=== PATIENT | male | born 1960 | race Caucasian/White ===

== ENCOUNTER 2017-05-12 10:32 | Emergency (ER) | payer BC ==
[2017-05-12 11:24] LABS: ABS Basophils 0.1 10^3/ul (0-0.2); ABS Eosinophils 0.1 10^3/ul (0-0.6); ABS Lymphocytes 1.4 10^3/ul (1.0-4.8); ABS Monocytes 0.4 10^3/ul (0-0.8); ABS Neutrophils 4.6 10^3/ul (1.5-7.7); ABS Nucleated RBC 0 10^3/ul; Eosinophil % 1.6 % (0-6); Hematocrit 45 % (42-52); Hemoglobin 15.4 g/dl (14.0-18.0); Mean Corpuscular HGB Conc 34 g/dl (31-36); Mean Corpuscular Hemoglobin 31 pg (27-31); Mean Corpuscular Volume 91 fL (80-94); Mean Platelet Volume 8 um3 (7.4-10.4); Nucleated Red Blood Cells % 0.1; Platelet Count 228 10^3/ul (150-450); Red Blood Count 4.97 10^6/ul (4.0-5.4); Red Cell Distribution Width 14 % (10.5-15); White Blood Count 6.5 10^3/ul (3.5-10.8)
--- NOTE | 2017-05-12 11:26 | RAD ---
INDICATION: Chest pain COMPARISON: Most recent comparison chest x-ray August 28, 2008 TECHNIQUE: Single AP portable view of the chest was obtained. FINDINGS: Image quality is compromised due to the relative inferiority of a portable chest x-ray. The heart and mediastinum exhibit normal size and contour. The lungs are grossly clear. There is no evidence of a large pleural effusion. Visualized bones are normal for the patient's age. IMPRESSION: No radiographic evidence for acute cardiopulmonary abnormality on this portable chest x-ray.
[2017-05-12 11:41] LABS: EGFR Non-African American 62.2 (>60)
[2017-05-12] MEDS ORDERED: fentaNYL* 50 MCG/ML 2 ML VIAL (100 MCG VIAL) ONE (12:03)
[2017-05-12] MEDS ORDERED: Heparin 2 UNITS/ML IVPREMIX* 3,000 ML IV ONE (12:04)
[2017-05-12] MEDS ORDERED: Lidocaine 1% INJ* 10 MG/ML 30 ML SDV ONE (12:04)
[2017-05-12 12:05] VITALS: BP 114/76
[2017-05-12] MEDS ORDERED: VERAPAMIL 2.5 MG/ML 4 ML VIAL ONE (12:05)
[2017-05-12] MEDS ORDERED: Heparin(*) 1000 UNIT/ML 10 ML VIAL CATH LAB IV ONE (12:05)
[2017-05-12] MEDS ORDERED: nitroGLYCERIN DRIP* 25,000 MCG/250 ML BTL ONE ×2 (12:05→14:14)
[2017-05-12] MEDS ORDERED: Midazolam* 1 MG/ML 10 ML VIAL (10 MG) ONE (12:06)
[2017-05-12] MEDS ORDERED: Iohexol 350 (CONTRAST) 200 ML MDV IV ONE (12:06)
[2017-05-12] MEDS ORDERED: Acetaminophen TAB* 325 MG PO PRN (14:29)
[2017-05-12] MEDS ORDERED: oxyCODONE/Acetamin 5/325 MG* TAB PO PRN (14:29)
[2017-05-12] MEDS ORDERED: Atorvastatin* 80 MG TAB PO ONE (14:30)
--- NOTE | 2017-05-15 00:25 | CATH ---
CC: Dr. Martínez Campuzano; Dr. Kaiser Moody CARDIAC CATHETERIZATION REPORT: DATE OF CATHETERIZATION: 05/12/17 REASON FOR CARDIAC CATHETERIZATION: The patient with markedly abnormal stress echo with EKG changes and wall motion abnormalities raising the question of multivessel disease. PROCEDURE: Coronary arteriography, left heart catheterization, left ventriculography. DESCRIPTION OF PROCEDURE: The patient was interviewed and examined in the holding area of the laborer cutting tool where the risks and benefits were explained. He understood them and wished to proceed. The right radial artery site was assessed in the holding area for approachability for cardiac catheterization and it was found to be acceptable for this and as such, the patient was brought to the cardiovascular laboratory and prepped and draped in sterile fashion. The right radial artery area was anesthetized with 1% lidocaine, the right radial artery was cannulated and a 6- [place] Glidesheath was placed. He received the radial artery cocktail including 3000 units of heparin, 3 mg of verapamil and 300 mcg of nitroglycerin. Coronary arteriography was then performed utilizing a 5-[place] TIG 4 curved diagnostic catheter. Central aortic pressure was recorded using a PIG Performa radial 5-[place] catheter advanced to the ascending aorta. The catheter was then passed across the aortic valve into the left ventricle, where left ventricular pressure was recorded. Left ventriculography was performed utilizing a total of 28 cc of Omnipaque dye at a rate of 14 cc/sec. The catheter was then pulled back across the aortic valve to recheck gradient. Following this and after a discussion with Dr. Moody, a decision was made to remove the sheath and hemostasis was controlled with a radial artery band. The patient was then prepared for transfer to [facility] in light of critical multivessel disease. The total contrast used was 95 cc of Omnipaque dye. The radiation exposure included 9.4 minutes of fluoro time. The air kerma radiation was 880 milligray. The DAPA radiation was 5034 microgray per meter squared. RESULTS: HEMODYNAMIC DATA: LEFT HEART CATHETERIZATION: Central aortic pressure was recorded at 104/58 with a mean of 79, left ventricular pressure of 107 over left ventricular end diastolic pressure of 13. LEFT VENTRICULOGRAPHY: Performed in the SUTTON projection revealed hyperdynamic left ventricular systolic function with an ejection fraction in excess of 65%. CORONARY ARTERIOGRAPHY: A. Left coronary artery: 1. Left main - of note, the left main was heavily calcified with a long segment of lumen reduction in its tha-tz-[id number] area. In its worst view, it appeared to have a narrowing of 60% to 65%. 2. Left anterior descending artery - the left anterior descending artery had a proximal lesion of 75% to 80% in its worst view. Following this, the mid segment in the LAD had mild disease. The wih-tm-ldjhiv segment had sequential lesions in the LAD of 85% to 90%. The first diagonal branch was a large bifurcating artery that appeared to have moderate disease in the more medial branch over the bifurcation of approximately 30% to 40%. The caliber of the vessel after the bifurcation appear to be less than 1.7 mm. 3. Circumflex artery - a non-dominant vessel supplying a thin first and second and third obtuse marginal branch followed by a moderate size bifurcating fourth obtuse marginal branch. There was mild luminal irregularity seen in the proximal segment of this artery of 20% to 25%. B. Right coronary artery - a dominant vessel supplying the PDA and multiple posterior left ventricular branches. The proximal area had diffuse narrowing of up to 60% to 65%. The mid segment had a critical 90% to 95% blockage seen prior to the artery turning on to the inferior surface. At the posterior descending artery, the right coronary artery tapered just prior to that and involved the take off of the posterior descending artery with significant luminal reduction of approximately 80%. The posterior LV branches appeared to be small in caliber. The PDA itself had a mild lesion of approximately 60% to 65%. 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 Hyperdynamic left ventricular systolic function was noted. In light of these findings, a discussion was made with Dr. Jaden Staton at [facility], who graciously accepted the patient for transfer for bypass surgery. Further management will be made by the cardiovascular service at [facility]. [id number]/[facility] #: [id number] [place]
--- NOTE | 2017-05-28 10:28 | ED ---
Nikita Sandoval Angela scribed for Massimo Dean MD on 05/12/17 at 1057 . HPI Chest Pain - HPI Summary HPI Summary: This pt is a 56 y/o male presenting to [facility] referred from reinsurance claim analyst office for chest pain today. Pt was at his reinsurance claim analyst's office having a stress test today and developed chest pain. Pt states that during the summer he used to be able to mow the lawn without any difficulties, but this past summer he had to stop multiple times before he finished. He went to his PCP's office and was referred to a reinsurance claim analyst for a stress test. Pt was given nitroglycerin, aspiring, and antihypertensive [employer] PET. Pt denies any current chest pain. PMHx includes HTN, for which he has been taking medications 20 mg for the last year. - History of Current Complaint Chief Complaint: EDChestPainROMI Time Seen by Provider: 05/12/17 10:46 Hx Obtained From: Patient Onset/Duration: Started Hours Ago, Atraumatic Timing: Constant, Lasting Hours Current Severity: None Pain Intensity: 0 Chest Pain Location: Diffuse Chest Pain Radiates: No Alleviating Factor(s): NTG 123, Other: - aspirin - Allergy/Home Medications Allergies/Adverse Reactions: Allergies Allergy/AdvReac Type Severity Reaction Status Date / Time Amoxicillin Allergy Rash Verified 05/12/17 11:04 Penicillins Allergy Rash Verified 05/12/17 11:04 Home Medications: Home Medications Lisinopril TAB* [Prinivil TAB*] 20 mg PO DAILY 05/12/17 [History Confirmed 05/12] Multivitamins/Minerals TAB* [Theragran/minerals TAB*] 1 tab PO DAILY 05/12/17 [ History Confirmed 05/12/17] PMH/Surg Hx/FS Hx/Imm Hx Endocrine/Hematology History: Denies: Hx Diabetes Cardiovascular History: Reports: Hx Hypertension Infectious Disease History: No Infectious Disease History: Denies: Traveled Outside the [place] in Last 30 Days - Family History Known Family History: Positive: None - Social History Alcohol Use: Occasionally Substance Use Type: Reports: None Smoking Status (MU): Never Smoked Tobacco Review of Systems Negative: Fever, Chills Negative: Erythema Negative: Sore Throat Positive: Chest Pain Negative: Shortness Of Breath, Cough Negative: Abdominal Pain, Vomiting, Nausea Negative: dysuria, hematuria Negative: Myalgia, Edema Negative: Rash Neurological: Other - NEG: dizziness All Other Systems Reviewed And Are Negative: Yes Physical Exam - Summary Physical Exam Summary: Constitutional: Well-developed, Well-nourished, Alert. (-) Distressed Skin: Warm, Dry HENT: Normocephalic; Atraumatic Eyes: Conjunctiva normal Neck: Musculoskeletal ROM normal neck. (-) JVD, (-) Stridor, (-) Tracheal deviation Cardio: Rhythm regular, rate normal, Heart sounds normal; Intact distal pulses; The pedal pulses are 2+ and symmetric. Radial pulses are 2+ and symmetric. (-) Murmur Pulmonary/Chest wall: Effort normal. (-) Respiratory distress, (-) Wheezes, (-) Rales Abd: Soft, (-) Tenderness, (-) Distension, (-) Guarding, (-) Rebound Musculoskeletal: (-) Edema Lymph: (-) Cervical adenopathy Neuro: Alert, Oriented x3 Psych: Mood and affect Normal Triage Information Reviewed: Yes Vital Signs On Initial Exam: Initial Vitals Temp Pulse Resp BP Pulse Ox 97.4 F 63 15 131/81 96 05/12/17 10:35 05/12/17 10:35 05/12/17 10:35 05/12/17 10:35 05/12/17 10:35 Vital Signs Reviewed: Yes Diagnostics - Vital Signs Vital Signs Temp Pulse Resp BP Pulse Ox 05/12/17 10:35 97.4 F 63 15 131/81 96 - Laboratory Lab Results: Lab Results 05/12/17 05/12/17 05/12/17 Range/Units 11:10 11:10 11:10 WBC 6.5 (3.5-10.8) 10^3/ul RBC 4.97 (4.0-5.4) 10^6/ul Hgb 15.4 (14.0-18.0) g/dl Hct 45 (42-52) % MCV 91 (80-94) fL MCH 31 (27-31) pg MCHC 34 (31-36) g/dl RDW 14 (10.5-15) % Plt Count 228 (150-450) 10^3/ul MPV 8 (7.4-10.4) um3 Neut % (Auto) 70.0 (38-83) % Lymph % (Auto) 21.0 L (25-47) % Merrick % (Auto) 6.4 (1-9) % Eos % (Auto) 1.6 (0-6) % Baso % (Auto) 1.0 (0-2) % Absolute Neuts (auto) 4.6 (1.5-7.7) 10^3/ul Absolute Lymphs (auto) 1.4 (1.0-4.8) 10^3/ul Absolute Monos (auto) 0.4 (0-0.8) 10^3/ul Absolute Eos (auto) 0.1 (0-0.6) 10^3/ul Absolute Basos (auto) 0.1 (0-0.2) 10^3/ul Absolute Nucleated RBC 0 10^3/ul Nucleated RBC % 0.1 APTT (26.0-36.3) seconds Sodium 134 (133-145) mmol/L Potassium 4.4 (3.5-5.0) mmol/L Chloride 102 (101-111) mmol/L Carbon Dioxide 27 (22-32) mmol/L Anion Gap 5 (2-11) mmol/L BUN 17 (6-24) mg/dL Creatinine 1.20 H (0.67-1.17) mg/dL Est GFR ( Amer) 80.0 (>60) Est GFR (Non-Af Amer) 62.2 (>60) BUN/Creatinine Ratio 14.2 (8-20) Glucose 101 H (70-100) mg/dL Lactic Acid 1.3 (0.5-2.0) mmol/L Calcium 9.4 (8.6-10.3) mg/dL Magnesium 2.2 (1.9-2.7) mg/dL Total Bilirubin 0.60 (0.2-1.0) mg/dL AST 20 (13-39) U/L ALT 22 (7-52) U/L Alkaline Phosphatase 33 L (34-104) U/L Troponin I 0.01 (<0.04) ng/mL Total Protein 7.3 (6.4-8.9) g/dL Albumin 4.3 (3.2-5.2) g/dL Globulin 3.0 (2-4) g/dL Albumin/Globulin Ratio 1.4 (1-3) 05/12/17 Range/Units 11:10 WBC (3.5-10.8) 10^3/ul RBC (4.0-5.4) 10^6/ul Hgb (14.0-18.0) g/dl Hct (42-52) % MCV (80-94) fL MCH (27-31) pg MCHC (31-36) g/dl RDW (10.5-15) % Plt Count (150-450) 10^3/ul MPV (7.4-10.4) um3 Neut % (Auto) (38-83) % Lymph % (Auto) (25-47) % Merrick % (Auto) (1-9) % Eos % (Auto) (0-6) % Baso % (Auto) (0-2) % Absolute Neuts (auto) (1.5-7.7) 10^3/ul Absolute Lymphs (auto) (1.0-4.8) 10^3/ul Absolute Monos (auto) (0-0.8) 10^3/ul Absolute Eos (auto) (0-0.6) 10^3/ul Absolute Basos (auto) (0-0.2) 10^3/ul Absolute Nucleated RBC 10^3/ul Nucleated RBC % APTT 29.9 (26.0-36.3) seconds Sodium (133-145) mmol/L Potassium (3.5-5.0) mmol/L Chloride (101-111) mmol/L Carbon Dioxide (22-32) mmol/L Anion Gap (2-11) mmol/L BUN (6-24) mg/dL Creatinine (0.67-1.17) mg/dL Est GFR ( Amer) (>60) Est GFR (Non-Af Amer) (>60) BUN/Creatinine Ratio (8-20) Glucose (70-100) mg/dL Lactic Acid (0.5-2.0) mmol/L Calcium (8.6-10.3) mg/dL Magnesium (1.9-2.7) mg/dL Total Bilirubin (0.2-1.0) mg/dL AST (13-39) U/L ALT (7-52) U/L Alkaline Phosphatase (34-104) U/L Troponin I (<0.04) ng/mL Total Protein (6.4-8.9) g/dL Albumin (3.2-5.2) g/dL Globulin (2-4) g/dL Albumin/Globulin Ratio (1-3) Result Diagrams: 05/12/17 11:10 05/12/17 11:10 Lab Statement: Any lab studies that have been ordered have been reviewed, and results considered in the medical decision making process. - Radiology Chest XR Xray Interpretation: No Acute Changes - IMPRESSION: No radiographic evidence for acute cardiopulmonary abnormality on this portable chest x-ray. Dr. Dean has reviewed this radiology report. Radiology Interpretation Completed By: Radiologist - EKG 10:35 Cardiac Rate: NL EKG Rhythm: Sinus Rhythm - at 60 bpm EKG Interpretation: J-point V2, V3 Chest Pain Course/Dx - Course Course Of Treatment: This pt is a 56 y/o male presenting to [facility] referred from reinsurance claim analyst office for chest pain today. Pt was at his reinsurance claim analyst's office having a stress test today and developed chest pain. Pt states that during the summer he used to be able to mow the lawn without any difficulties, but this past summer he had to stop multiple times before he finished. He went to his PCP 's office and was referred to a reinsurance claim analyst for a stress test. Pt was given nitroglycerin, aspiring, and antihypertensive [employer] PET. Pt denies any current chest pain. Chest XR shows no radiographic evidence for acute cardiopulmonary abnormality on this portable chest x-ray. EKG shows NSR with J-point in V2, V3. I discussed pt care [facility] Dr. Bernard, who will take the pt to the medical laboratory manager now. - Diagnoses Provider Diagnoses: Chest pain, unspecified - Provider Notifications Discussed Care Of Patient With: Jovi Bernard Time Discussed With Above Provider: 11:38 Instructed by Provider To: Other - I discussed pt care [facility] Dr. Bernard, who will take the pt to the medical laboratory manager now. - Critical Care Time Critical Care Time: 30-74 min - 45 minutes Discharge - Discharge Plan Condition: Stable Disposition: ADMITTED TO [facility] Referrals: Martínez Campuzano MD [Primary Care Provider] - The documentation as recorded by the Nikita thapa Angela accurately reflects the service I personally performed and the decisions made by Dianne crowder Jerry, MD.
== END 2017-05-12 12:03 | disposition short-term general hospital (02) ==
LOC: ED 10:32
DX: R07.89 Other chest pain (principal); I10 Essential (primary) hypertension; Z88.0 Allergy status to penicillin
CPT/HCPCS: 36415; 71010; 76937; 80053; 83605; 83735; 84484; 85025; 85730; 93005; 93458; 99156; 99157; 99282; A9270-GY; J1644; J2250; J3010

== ENCOUNTER 2022-03-04 10:18 | Observation (INO) ==
[2022-03-04 11:46] LABS: ABS Eosinophils 0.1 10^3/ul (0-0.6); ABS Lymphocytes 1.5 10^3/ul (1.0-4.8); ABS Monocytes 0.5 10^3/ul (0-0.8); ABS Neutrophils 5.1 10^3/ul (1.5-7.7); Eosinophil % 1.4 %; Hematocrit 51 % (42-52); Lymphocyte % 20.5 %; Mean Corpuscular HGB Conc 34 g/dL (31-36); Mean Corpuscular Hemoglobin 31 pg (27-31); Mean Corpuscular Volume 93 fL (80-94); Mean Platelet Volume 8.4 fL (7.4-10.4); Nucleated Red Blood Cells % 0.2; Platelet Count 202 10^3/uL (150-450); Red Blood Count 5.41 10^6 /uL (4.18-5.48); Red Cell Distribution Width 14 % (10-15); White Blood Count 7.2 10^3/uL (3.5-10.8)
[2022-03-04 11:53] LABS: High Sens Troponin Baseline 7366 pg/mL (<20)
[2022-03-04 12:14] LABS: Albumin 4.4 g/dL (3.2-5.2); CO2 Carbon Dioxide 29 mmol/L (22-32); Calcium 9.5 mg/dL (8.6-10.3); Chloride 103 mmol/L (101-111); Sodium 137 mmol/L (135-145)
[2022-03-04 12:20] LABS: ALT 37 U/L (7-52); Albumin/Globulin Ratio 1.5 (1-3); Alkaline Phosphatase 46 U/L (35-149); Blood Urea Nitrogen 15 mg/dL (6-24); Globulin 2.9 g/dL (2-4); Glucose 92 mg/dL (70-100); Total Protein 7.3 g/dL (6.4-8.9); eGFR CKD-EPI 66.6 (>60)
[2022-03-04 12:44] LABS: Anion Gap 5 mmol/L (2-11)
[2022-03-04 12:46] LABS: Magnesium 2.2 mg/dL (1.9-2.7)
[2022-03-04 12:51] LABS: Lipase 31 U/L (11.0-82.0)
[2022-03-04 13:07] LABS: Activated Partial Thrombo Time 33.3 seconds (26.0-38.0); INR 1.03 (0.89-1.11)
[2022-03-04] MEDS: Heparin 5000 UNITS/ML 1 mL VIAL IV SCH ×2 (13:15→19:54)
[2022-03-04] MEDS: Heparin DRIP 25,000 UNITS BAG 25,000 UNITS/500 ML BAG IV SCH (13:17)
[2022-03-04 14:20] LABS: Potassium Redraw 4.5 mmol/L (3.5-5.0)
[2022-03-05 06:57] LABS: ABS Basophils 0.1 10^3/ul (0-0.2); ABS Eosinophils 0.1 10^3/ul (0-0.6); ABS Lymphocytes 1.5 10^3/ul (1.0-4.8); ABS Monocytes 0.5 10^3/ul (0-0.8); ABS Neutrophils 3.7 10^3/ul (1.5-7.7); Eosinophil % 1.9 %; Hematocrit 43 % (42-52); Hemoglobin 14.7 g/dL (14.0-18.0); Lymphocyte % 25.6 %; Mean Corpuscular HGB Conc 34 g/dL (31-36); Mean Corpuscular Hemoglobin 31 pg (27-31); Mean Corpuscular Volume 93 fL (80-94); Mean Platelet Volume 8.2 fL (7.4-10.4); Platelet Count 174 10^3/uL (150-450); Red Blood Count 4.69 10^6 /uL (4.18-5.48); Red Cell Distribution Width 14 % (10-15); White Blood Count 5.9 10^3/uL (3.5-10.8)
[2022-03-05] MEDS: Aspirin EC 81 mg TAB.EC (enteric coated) PO SCH (12:13)
[2022-03-05 14:13] LABS: HDL Cholesterol 48.3 mg/dL
[2022-03-05 15:24] LABS: High Sensitivity Troponin 1 Hr 5360 pg/mL (<20)
[2022-03-05] MEDS: Heparin DRIP 25,000 UNITS BAG 25,000 UNITS/500 ML BAG IV SCH (20:18)
[2022-03-05] MEDS: Isosorbide Mononit ER 30mg TAB PO SCH (21:52)
[2022-03-06 03:38] LABS: ABS Eosinophils 0.1 10^3/ul (0-0.6); ABS Lymphocytes 1.7 10^3/ul (1.0-4.8); ABS Monocytes 0.5 10^3/ul (0-0.8); Eosinophil % 1.9 %; Hematocrit 42 % (42-52); Hemoglobin 14.2 g/dL (14.0-18.0); Lymphocyte % 26.7 %; Mean Corpuscular HGB Conc 34 g/dL (31-36); Mean Corpuscular Hemoglobin 31 pg (27-31); Mean Corpuscular Volume 92 fL (80-94); Mean Platelet Volume 8.1 fL (7.4-10.4); Platelet Count 175 10^3/uL (150-450); Red Blood Count 4.61 10^6 /uL (4.18-5.48); Red Cell Distribution Width 14 % (10-15); White Blood Count 6.4 10^3/uL (3.5-10.8)
[2022-03-06 03:45] LABS: Activated Partial Thrombo Time 58.8 seconds (26.0-38.0)
[2022-03-06 04:36] LABS: Albumin 3.7 g/dL (3.2-5.2); Calcium 8.8 mg/dL (8.6-10.3); Total Bilirubin 0.8 mg/dL (0.2-1.0)
[2022-03-06 04:42] LABS: Albumin/Globulin Ratio 1.5 (1-3); Globulin 2.5 g/dL (2-4); Total Protein 6.2 g/dL (6.4-8.9); eGFR CKD-EPI 74.6 (>60)
[2022-03-06 04:48] LABS: INR 1.22 (0.89-1.11)
[2022-03-06] MEDS: Isosorbide Mononit ER 30mg TAB PO SCH ×2 (08:33→11:35)
[2022-03-06] MEDS: Aspirin EC 81 mg TAB.EC (enteric coated) PO SCH ×2 (08:33→11:35)
[2022-03-06 14:12] LABS: Magnesium 1.9 mg/dL (1.9-2.7)
[2022-03-06 15:34] LABS: High Sensitivity Troponin 1 Hr 3502 pg/mL (<20)
[2022-03-06 19:20] VITALS: BP 141/95
== END 2022-03-06 22:10 | disposition short-term general hospital (02) ==
LOC: EDHOLD 10:18 → ED 10:18 → EDHOLD 03-05 23:44 → MEDTELE 03-05 23:55
PROVIDERS: ADMIT Internal Medicine; ATTEND Internal Medicine

== ENCOUNTER 2022-10-07 07:37 | Observation (INO) ==
[2022-10-07] MEDS ORDERED: fentaNYL 100 mcg/2 ml 50 MCG/ML VIAL IV SLOW PU ONE (08:15)
[2022-10-07] MEDS ORDERED: Midazolam 10 mg/10 ml VIAL 1 mg/ml 10 ml VIAL (10 mg) IV SLOW PU ONE (08:15)
[2022-10-07] MEDS ORDERED: VERAPAMIL 2.5 MG/ML 2 ML VIAL ** 5 mg/2 ml ONE (08:34)
[2022-10-07] MEDS ORDERED: Heparin 2 UNITS/ML 1000 mls 2,000 ML IV ONE (08:34)
[2022-10-07] MEDS ORDERED: Heparin 1,000 UNIT/ML 10 ml (10,000 UNITS) CATHLAB/DIALYSIS ONE (08:34)
[2022-10-07] MEDS ORDERED: Lidocaine 1% MPF 5 ML VIAL ONE (08:35)
[2022-10-07] MEDS ORDERED: nitroGLYCERIN DRIP 25,000 MCG/250 ML BTL ONE (08:35)
[2022-10-07] MEDS ORDERED: Iohexol 350 (CONTRAST) 200 ML MDV IV ONE (08:35)
[2022-10-07] MEDS ORDERED: Bivalirudin 250 MG VIAL ONE (09:44)
[2022-10-07] MEDS ORDERED: NS 0.9% 1000 ml BAG 1,000 ML IV SCH (10:30)
[2022-10-07] MEDS: NS 0.9% 1000 ml BAG 1,000 ML IV ONE ×2 (11:11→18:14)
[2022-10-07 13:09] LABS: ABS Eosinophils 0.1 10^3/uL (0.0-0.5); ABS Monocytes 0.2 10^3/uL (0.0-1.1); ABS Neutrophils 3.1 10^3/uL (1.5-7.6); ABS Nucleated RBC 0.01 10^3/ul; Eosinophil % 2.5 %; Hematocrit 33.5 % (38-53); Hemoglobin 11.5 g/dL (13.2-16.3); Lymphocyte % 21.8 %; Mean Corpuscular Hemoglobin 32.2 pg (27-33); Mean Corpuscular Hgb Conc 34.2 g/dL (31-36); Mean Platelet Volume 7.9 fL (7.5-11.2); Nucleated Red Blood Cells % 0.1 /100 WBC (0.0-0.4); Platelet Count 130 10^3/uL (150-450); Red Blood Count 3.56 10^6/uL (4.06-5.63); Red Cell Distribution Width 13.8 % (12-17); White Blood Count 4.4 10^3/uL (3.6-10.2)
[2022-10-07 13:48] LABS: Albumin 3.3 g/dL (3.2-5.2); Albumin/Globulin Ratio 1.6 (1-3); Calcium 7.1 mg/dL (8.6-10.3); Creatinine, Serum 0.88 mg/dL (0.67-1.17); Globulin 2.1 g/dL (2-4); Magnesium 1.8 mg/dL (1.9-2.7); Potassium 3.5 mmol/L (3.5-5.0); Total Bilirubin 0.6 mg/dL (0.2-1.0); Total Protein 5.4 g/dL (6.4-8.9)
[2022-10-07] MEDS ORDERED: Potassium EFFERVES 25 meq TAB PO ONE (14:46)
[2022-10-07] MEDS ORDERED: CMCS:Prasugrel 10 mg TAB (NF) PO SCH (21:00)
[2022-10-08 05:25] LABS: ABS Eosinophils 0.2 10^3/uL (0.0-0.5); ABS Lymphocytes 1.3 10^3/uL (1.0-4.8); ABS Monocytes 0.4 10^3/uL (0.0-1.1); ABS Neutrophils 2.8 10^3/uL (1.5-7.6); ABS Nucleated RBC 0.01 10^3/ul; Hematocrit 41.2 % (38-53); Hemoglobin 14.1 g/dL (13.2-16.3); Lymphocyte % 27.2 %; Mean Corpuscular Hemoglobin 31.3 pg (27-33); Mean Corpuscular Hgb Conc 34.4 g/dL (31-36); Mean Platelet Volume 7.7 fL (7.5-11.2); Nucleated Red Blood Cells % 0.2 /100 WBC (0.0-0.4); Platelet Count 162 10^3/uL (150-450); Red Blood Count 4.52 10^6/uL (4.06-5.63); Red Cell Distribution Width 13.8 % (12-17); White Blood Count 4.7 10^3/uL (3.6-10.2)
[2022-10-08 05:49] LABS: Calcium 8.6 mg/dL (8.6-10.3)
[2022-10-08 05:55] LABS: Creatinine, Serum 0.97 mg/dL (0.67-1.17); eGFR CKD-EPI 87.2 (>60)
[2022-10-08] MEDS ORDERED: Prasugrel 10 mg TAB (NF) PO SCH (09:00)
[2022-10-08 10:25] VITALS: BP 93/71
== END 2022-10-08 12:06 | disposition home or self-care (01) ==
LOC: ICU 07:37 → CHICATH 07:37
PROVIDERS: ADMIT Specialist

== ENCOUNTER 2023-06-15 08:08 | Observation (INO) ==
[2023-06-15 08:03] LABS: Hematocrit 46.1 % (38-53); Hemoglobin 15.8 g/dL (13.2-16.3); Mean Corpuscular Hemoglobin 31.8 pg (27-33); Mean Corpuscular Hgb Conc 34.2 g/dL (31-36); Mean Corpuscular Volume 93.1 fL (80-97); Mean Platelet Volume 7.7 fL (7.5-11.2); Platelet Count 232 10^3/uL (150-450); Red Blood Count 4.96 10^6/uL (4.06-5.63); Red Cell Distribution Width 15.1 % (12-17); White Blood Count 5.3 10^3/uL (3.6-10.2)
[2023-06-15 08:23] LABS: Calcium 9.4 mg/dL (8.6-10.3); Creatinine, Serum 1.42 mg/dL (0.67-1.17); eGFR CKD-EPI 55.2 (>60)
[2023-06-15] MEDS ORDERED: Midazolam 10 mg/10 ml VIAL 1 mg/ml 10 ml VIAL (10 mg) IV SLOW PU ONE (08:30)
[2023-06-15] MEDS ORDERED: fentaNYL 100 mcg/2 ml 50 MCG/ML VIAL IV SLOW PU ONE (08:30)
[2023-06-15] MEDS ORDERED: Iodixanol 320 (CONTRAST) 100 ML SDV ONE ×4 (08:31→10:17)
[2023-06-15] MEDS ORDERED: Lidocaine 1% MPF 5 ML VIAL ONE (08:32)
[2023-06-15] MEDS ORDERED: Heparin 2 UNITS/ML 1000 mls 1,000 ML IV ONE ×2 (08:32)
[2023-06-15 08:33] LABS: Activated Partial Thrombo Time 35.3 seconds (26.0-38.0); INR 1.07 (0.83-1.13)
[2023-06-15] MEDS ORDERED: Iohexol 350 (CONTRAST) 100 ML PAK IV ONE (08:37)
[2023-06-15] MEDS ORDERED: Heparin 1,000 UNIT/ML 10 ml (10,000 UNITS) CATHLAB/DIALYSIS ONE (08:39)
[2023-06-15] MEDS ORDERED: nitroGLYCERIN DRIP 25,000 MCG/250 ML BTL ONE (09:29)
[2023-06-15] MEDS ORDERED: Bivalirudin 250 MG VIAL ONE (09:47)
[2023-06-15] MEDS ORDERED: NS 0.9% 1000 ml BAG 1,000 ML IV SCH (10:45)
[2023-06-15] MEDS ORDERED: Enoxaparin 40 MG/0.4 ML SYR SUBCUT SCH (14:00)
[2023-06-16 05:16] LABS: ABS Eosinophils 0.1 10^3/uL (0.0-0.5); ABS Monocytes 0.5 10^3/uL (0.0-1.1); ABS Neutrophils 3.4 10^3/uL (1.5-7.6); Eosinophil % 2.7 %; Hematocrit 40.1 % (38-53); Hemoglobin 13.9 g/dL (13.2-16.3); Lymphocyte % 20.3 %; Mean Corpuscular Hemoglobin 31.9 pg (27-33); Mean Corpuscular Hgb Conc 34.7 g/dL (31-36); Mean Corpuscular Volume 91.8 fL (80-97); Mean Platelet Volume 7.6 fL (7.5-11.2); Platelet Count 176 10^3/uL (150-450); Red Blood Count 4.37 10^6/uL (4.06-5.63); Red Cell Distribution Width 15.2 % (12-17)
[2023-06-16 06:06] LABS: Blood Urea Nitrogen 13 mg/dL (6-24); CO2 Carbon Dioxide 25 mmol/L (22-32); Calcium 8.5 mg/dL (8.6-10.3); Chloride 104 mmol/L (101-111); Creatinine, Serum 1.16 mg/dL (0.67-1.17); Glucose 96 mg/dL (70-100); Sodium 136 mmol/L (135-145); eGFR CKD-EPI 70.3 (>60)
[2023-06-16 06:09] LABS: Anion Gap 7 mmol/L (2-16)
[2023-06-16] MEDS ORDERED: Multivitamins/Minerals TAB PO SCH (09:00)
[2023-06-16] MEDS ORDERED: Aspirin EC 81 mg TAB.EC (enteric coated) PO SCH (09:00)
[2023-06-16] MEDS ORDERED: CMC:Prasugrel 5 MG TAB (NF) PO SCH (09:00)
[2023-06-16 12:39] VITALS: BP 111/68
== END 2023-06-16 12:50 | disposition home or self-care (01) ==
LOC: CHICATH 08:08 → ICU 08:08 → OBSVTOIN 10:44 → INTOOBSV 17:27
PROVIDERS: ADMIT Specialist; ATTEND Specialist